=== PATIENT | male | born 1995 | race Caucasian/White ===

== ENCOUNTER 2022-09-29 07:33 | Emergency (ER) | payer BC ==
[2022-09-29] MEDS ORDERED: Sulfamethoxazole/Trimethoprim 800-160 MG Tab PO ONE (07:52)
[2022-09-29] MEDS ORDERED: Diphtheria,Pertussis(Acell),Tetanus Vaccine 0.5 ML Syringe IM ONE (07:52)
[2022-09-29] MEDS ORDERED: metroNIDAZOLE 500 MG Tab PO ONE (07:52)
[2022-09-29] MEDS ORDERED: Lidocaine 1% 10 ML MDV INJECT ONE (07:52)
== END 2022-09-29 08:48 | disposition home or self-care (01) ==
LOC: JD.ED 07:33
DX: S51.852A Open bite of left forearm, initial encounter (principal); S70.312A Abrasion, left thigh, initial encounter; S70.311A Abrasion, right thigh, initial encounter; Z88.0 Allergy status to penicillin; Z88.8 Allergy status to other drugs, medicaments and biological substances; Z23 Encounter for immunization; W54.0XXA Bitten by dog, initial encounter
CPT/HCPCS: 12001; 90471; 90715; 99283; A9270; J3490

== ENCOUNTER 2022-12-22 15:01 | Emergency (ER) | payer BC ==
[2022-12-22] MEDS ORDERED: Lidocaine 1% 10 ML MDV INJECT ONE (16:05)
[2022-12-22] MEDS ORDERED: Sulfamethoxazole/Trimethoprim 800-160 MG Tab PO ONE (16:24)
== END 2022-12-22 17:18 | disposition home or self-care (01) ==
LOC: JD.ED 15:01
DX: S61.452A Open bite of left hand, initial encounter (principal); Z88.0 Allergy status to penicillin; Z88.8 Allergy status to other drugs, medicaments and biological substances; Z79.899 Other long term (current) drug therapy; Z86.16 Personal history of COVID-19; W54.0XXA Bitten by dog, initial encounter
CPT/HCPCS: 12002; 99283; A9270; J3490